=== PATIENT | female | born 1990 | race Caucasian/White ===

== ENCOUNTER 2017-07-20 17:34 | Emergency (ER) | payer OTHER ==
[~2017-07-20] VITALS: Ht 157.5 cm; Wt 65.0 kg
[~2017-07-20 17:34] MED LIST: PRENATAL VITAMIN
[2017-07-20 17:40] VITALS: BP 127/73; PULSE 80; RESP 16; TEMP 98.3; O2SAT 99
--- NOTE | 2017-07-20 18:10 | PD ---
Physical Exam Time Seen by Provider: 18:07 Narrative Patient was initially assessed and evaluated by Florentin Cruz PA-C in [place]. The patient was transferred to [facility] for ultrasound to rule out ectopic . See Florentin Quick note for initial assessment and evaluation. Data Data Last Documented VS Vital Signs Date Time Temp Pulse Resp B/P (MAP) Pulse Ox O2 Delivery O2 Flow Rate FiO2 07/20/17 17:40 98.3 80 16 127/73 (91) 99 Orders Orders Complete Blood Count With Diff (07/20/17 18:07) Comprehensive Metabolic Panel (07/20/17 18:07) Type And Screen (07/20/17 18:07) Us Pelvis (Ques Pr/Ect)W Trans (07/20/17 ) Labs Laboratory Tests Test 07/20/17 18:35 White Blood Count 9.5 TH/MM3 Red Blood Count 4.77 MIL/MM3 Hemoglobin 11.9 GM/DL Hematocrit 36.6 % Mean Corpuscular Volume 76.8 FL Mean Corpuscular Hemoglobin 25.0 PG Mean Corpuscular Hemoglobin Concent 32.6 % Red Cell Distribution Width 15.3 % Platelet Count 213 TH/MM3 Mean Platelet Volume 9.0 FL Neutrophils (%) (Auto) 62.7 % Lymphocytes (%) (Auto) 29.4 % Monocytes (%) (Auto) 6.7 % Eosinophils (%) (Auto) 0.9 % Basophils (%) (Auto) 0.3 % Neutrophils # (Auto) 5.9 TH/MM3 Lymphocytes # (Auto) 2.8 TH/MM3 Monocytes # (Auto) 0.6 TH/MM3 Eosinophils # (Auto) 0.1 TH/MM3 Basophils # (Auto) 0.0 TH/MM3 CBC Comment DIFF FINAL Differential Comment Blood Urea Nitrogen 9 MG/DL Creatinine 0.57 MG/DL Random Glucose 82 MG/DL Total Protein 7.1 GM/DL Albumin 3.5 GM/DL Calcium Level 8.7 MG/DL Alkaline Phosphatase 80 U/L Aspartate Amino Transf (AST/SGOT) 16 U/L Alanine Aminotransferase (ALT/SGPT) 19 U/L Total Bilirubin 0.2 MG/DL Sodium Level 137 MEQ/L Potassium Level 3.7 MEQ/L Chloride Level 105 MEQ/L Carbon Dioxide Level 22.3 MEQ/L Anion Gap 10 MEQ/L Estimat Glomerular Filtration Rate 129 ML/MIN [facility] Supervised Visit with MIKEL: Yes Narrative Course Patient was initially assessed and evaluated by Florentin Cruz PA-C in [place]. The patient was transferred to [facility] for ultrasound to rule out ectopic . See Florentin Quick note for initial assessment and evaluation. She was positive for clue cells and has moderately high bacteria in the urine. Urine culture pending. Chlamydia and gonorrhea pending. Beta- hCG 19231. 1808: CBC, BMP, type and screen ordered. Pelvic ultrasound ordered. 2002: CBC, CMP unremarkable. Patient O+ blood type. Pelvic ultrasound concludes: There is an early single intrauterine present with small yolk sac. No pole or heart beat identified. The gestational sac measurement corresponds to a 5 week 5 day menstrual age. Patient has a appointment with her glass technologist, Dr. Antony, in one week. Instructed patient to follow up with glass technologist as scheduled appointment or earlier. Discussed positive finding of bacterial vaginosis and the need to discuss this and treatment with burn crew member. Patient verbalized understanding and agreement. Patient will be given a prescription for Macrobid for pyuria. Instructed patient to follow up with primary care provider. Patient verbalizes understanding and agreement with treatment plan. Patient is medically cleared and stable for discharge. Discussed reasons to return to the emergency department. Patient agrees with treatment plan. The patients vital signs are stable and the patient is stable for outpatient follow-up and treatment. Patient discharged home, stable and in no acute distress. Diagnosis Primary Impression: Intrauterine Additional Impressions: Bacterial vaginosis Pyuria Referrals: [facility] Retail Sales Lead Primary Care Physician Patient Instructions: Bacterial Vaginosis (ED), First Trimester (ED) , General Instructions Additional Instruction: Tylenol as directed as needed for pain Drink plenty of fluids Follow-up with burn crew member at next scheduled appointment or earlier Discuss finding of bacterial vaginosis with burn crew member; you were not treated Follow-up with primary care provider Return to the emergency department immediately with worsening of symptoms Med/Other Pt SpecificInfo: Prescription(s) given, No Change to Meds, No Meds Exist/No RX given Scripts Nitrofurantoin Monohydrate Macrocrystals (Macrobid) 100 Mg Cap 100 MG PO BID for Infection for 5 Days, #10 CAP 0 Refills Prov: Wandy Hensley 07/20/17 Disposition: 01 DISCHARGE HOME Condition: Stable Wandy Hensley Jul 20, 2017 18:10
[2017-07-20 18:57] LABS: AUTOMATED NEUTROPHIL # 5.9 TH/MM3 (1.8-7.7); BASOPHIL % 0.3 % (0.0-2.0); EOSINOPHIL # 0.1 TH/MM3 (0-0.4); EOSINOPHIL % 0.9 % (0.0-4.0); HEMATOCRIT 36.6 % (35.0-46.0); HEMO FLAGS DIFF FINAL; LYMPH % 29.4 % (9.0-44.0); LYMPHOCYTE # 2.8 TH/MM3 (1.0-4.8); MEAN CELL VOLUME 76.8 FL (80.0-100.0); MEAN CORPUSCULAR HGB CONC 32.6 % (32.0-36.0); MONO % 6.7 % (0.0-8.0); NEUT % 62.7 % (16.0-70.0); PLATELET COUNT 213 TH/MM3 (150-450); RED BLOOD COUNT 4.77 MIL/MM3 (4.00-5.30); RED CELL DISTRIBUTION WIDTH 15.3 % (11.6-17.2); WHITE BLOOD COUNT 9.5 TH/MM3 (4.0-11.0)
[2017-07-20 19:13] LABS: ANION GAP 10 MEQ/L (5-15); AST (GOT) 16 U/L (15-37); BICARBONATE 22.3 MEQ/L (21.0-32.0); BLOOD UREA NITROGEN 9 MG/DL (7-18); CHLORIDE 105 MEQ/L (98-107); GLOMERULAR FILTRATION RATE 129 ML/MIN (>89); POTASSIUM 3.7 MEQ/L (3.5-5.1); SODIUM (NA) 137 MEQ/L (136-145)
[2017-07-20 19:14] LABS: ALT (GPT) 19 U/L (10-53)
[2017-07-20 19:16] LABS: ALKALINE PHOSPHATASE 80 U/L (45-117); TOTAL BILIRUBIN ADULT 0.2 MG/DL (0.2-1.0)
--- NOTE | 2017-07-20 20:02 | RADRPT ---
EXAM DATE/TIME: 07/20/2017 19:17 [place] COMPARISON: No previous studies available for comparison. INDICATIONS : Pelvic pain. LAB(S): Beta-hC MEDICAL HISTORY : Irritable bowel syndrome. SURGICAL HISTORY : Jaw surgery. ENCOUNTER: Initial ACUITY: 1 day PAIN SCORE: 3/10 LOCATION: Bilateral pelvis MEASUREMENTS: UTERUS: 8.9 x 5.3 x 4.6 cm ENDOMETRIAL STRIPE: 16 mm RIGHT OVARY: 2.7 x 2.1 x 1.4 cm LEFT OVARY: 2.7 x 1.8 x 2.2 cm FREE FLUID: Yes FINDINGS: UTERUS: There is an early single intrauterine present with small yolk sac. No pole or heart b eat identified. The gestational sac measurement corresponds to a 5 week 5 day menstrual age. RIGHT OVARY: Ovary contains no mass or significant cystic lesion. LEFT OVARY: Ovary contains no mass or significant cystic lesion. MISCELLANEOUS: Air is a small amount of free fluid. CONCLUSION: 1. Early intrauterine or response to a 5 week 5 day menstrual age. 2. Unremarkable ovaries. 3. Small amount of free fluid in the cul-de-sac. Torres Gomez MD on July 20, 2017 at 19:58 Board Certified Radiologist. This report was verified electronically.
[2017-07-20] MEDS ORDERED: MACR100C2 PO (20:15)
== END 2017-07-20 20:22 | disposition home or self-care (01) ==
LOC: NEPD 17:34
DX: O23.591 Infection of other part of genital tract in pregnancy, first trimester (principal); N76.0 Acute vaginitis; B96.89 Other specified bacterial agents as the cause of diseases classified elsewhere; O23.41 Unspecified infection of urinary tract in pregnancy, first trimester; Z3A.01 Less than 8 weeks gestation of pregnancy
CPT/HCPCS: 76700; 76817; 80053; 81001; 84702; 85025; 86850; 86900; 86901; 87086; 87210; 87491; 87591; 99284